=== PATIENT | female | born 1965 | race Caucasian/White ===

== ENCOUNTER 2017-11-25 10:35 | Outpatient (CLI) | payer MEDICARE, MEDICAID | END 2017-11-25 10:36 | disposition home or self-care (01) | LOC: BICRAD 10:35 | PROVIDERS: ATTEND Internal Medicine | DX: S69.92XA Unspecified injury of left wrist, hand and finger(s), initial encounter (principal) ==

== ENCOUNTER 2018-03-20 11:20 | Outpatient (CLI) | payer MEDICARE, MEDICAID | END 2018-03-20 11:21 | disposition home or self-care (01) | LOC: BICRAD 11:20 | PROVIDERS: ATTEND Internal Medicine | DX: J44.9 Chronic obstructive pulmonary disease, unspecified (principal) | CPT/HCPCS: 71046 ==

== ENCOUNTER 2018-09-12 17:13 | Inpatient (IN) | payer MEDICARE, MEDICAID ==
[2018-09-12] MEDS ORDERED: Succinylcholine Chloride 20 MG/ML 10 ml SYRINGE FS ONE (17:19)
[2018-09-12] MEDS ORDERED: Vecuronium 10 MG VIAL ONE (17:27)
[2018-09-12] MEDS ORDERED: Propofol 1,000 MG/100 ML VIAL IV ONE ×2 (17:30→21:11)
[2018-09-12] MEDS ORDERED: fentaNYL Citrate/PF 2,000 MCG in Sodium Chloride 0.9% 60 ML IV SCH (17:36)
[2018-09-12 18:03] LABS: #Eosinphils 0.1 thou/uL (0.0-0.7); #Lymphocytes 2.6 thou/uL (1.20-3.40); #Monocytes 0.6 thou/uL (0.11-0.59); #Neutrophils 5.7 thou/uL (1.40-6.50); %Basophils 0.5 % (0.0-1.0); %Eosinophils 1.3 % (0.0-10.0); %Lymphocytes 29.1 % (21.0-51.0); %Monocytes 6.7 % (0.0-10.0); %Neutrophils 62.4 % (42.0-75.0); Hemoglobin 16.8 g/dL (12.0-16.0); Mean Corpuscular HGB CONC 33.6 g/dL (32.0-36.0); Mean Corpuscular Hemoglobin 30.5 pg (27.0-31.0); Mean Corpuscular Volume 90.9 fL (78.0-98.0); Mean Platelet Volume 7.2 fL (7.4-10.4); Platelet Count 307 thou/uL (130-400); RBC Distribution Width 12.4 % (11.5-14.5); White Blood Cell (WBC) Count 9.1 thou/uL (4.8-10.8)
[2018-09-12 18:05] LABS: BHCG - Serum Negative (NEGATIVE); Pregs Control Background? CLEAR/WHITE (CLR/WHITE); Pregs Control Bar Appear? YES (CONTROL BAR)
[2018-09-12 18:12] LABS: ALT (SGPT) 13 U/L (8-55); AST (SGOT) 19 U/L (5-34); Albumin 4.5 g/dL (3.5-5.0); Alkaline Phosphatase 101 U/L (40-150); Anion Gap 17 mmol/L (10-20); BUN (Urea Nitrogen) 6 mg/dL (9.8-20.1); Bilirubin, Total 0.3 mg/dL (0.2-1.2); Calc. Creatinine Clearance 0 mL/min (70-130); Carbon Dioxide 19 mmol/L (22-29); Chloride 107 mmol/L (98-107); Estimated GFR-MDRD 78; Globulin 3.9 g/dL (2.4-3.5); Glucose 86 mg/dL (70-105); Potassium 3.8 mmol/L (3.5-5.1); Protein, Total 8.4 g/dL (6.0-8.3); Sodium 139 mmol/L (136-145)
[2018-09-12 18:15] LABS: Bilirubin Negative (Negative); Blood, Urine Negative (Negative); Clarity CLEAR (Clear); Glucose, Urine (Dipstick) Negative (Negative); Leukocyte Negative (Negative); Nitrite Negative (Negative); Protein, Urine (Dipstick) Negative (Neg-Trace); Specific Gravity, Urine 1.004 (1.002-1.036); Urobilinogen 0.2 mg/dL (0.2-1.0); pH, Urine 5.5 (5.0-9.0)
[2018-09-12 18:24] LABS: Actual Bicarbonate (HCO3a) 21.5 mEq/L (22-28); Analyzer IN Cardio ER; Base Excess (BEa) -6.1 mEq/L (-2.0 to +3.0); CO2 Tension 50.8 mmHg (35.0-45.0); Calcium, Ionized 1.09 mmol/L (1.12-1.30); Carboxyhemoglobin (COHb) 7.7 gm% (0.0-3.0); Hemoglobin (Hb) 13.7 g/dL (12.0-16.0); O2 Tension (PaO2) 107.1 mmHg (80.0-100.0); Potassium - ABG Lab 3.54 mmol/L (3.70-5.30)
[2018-09-12 18:25] LABS: Troponin I Less than 0.010 ng/mL (< 0.028)
[2018-09-12 18:25] LABS: Amphetamine Not Detected (NotDetected); Barbiturates Screen Not Detected (NotDetected); Benzodiazepine Screen Not Detected (NotDetected); Cocaine Metabolite Screen Detected (NotDetected); Medtox Control Line Valid? VALID (VALID); Medtox Reader # READER 1; Methadone Not Detected (NotDetected); Methamphetamine Not Detected (NotDetected); Opiate Screen Not Detected (NotDetected); Oxycodone Screen Not Detected (NotDetected); Phencyclidine (PCP) Not Detected (NotDetected); THC/Cannabinoid Screen Not Detected (NotDetected); Tricyclic Screen Not Detected (NotDetected)
[2018-09-12 18:28] LABS: Acetaminophen Less than 6.0 mcg/mL (10.0-30.0); Alcohol 162 mg/dL (Less than 10); Salicylate Less than 8.0 mg/dL (15.0-30.0)
[2018-09-12 18:29] LABS: pH, Arterial 7.24 (7.35-7.45)
[2018-09-12 18:30] LABS: Puncture Site LBA
--- NOTE | 2018-09-12 18:57 | RAD ---
PORTABLE SUPINE FRONTAL CHEST RADIOGRAPH 09/12/18 COMPARISON: 07/08/05. HISTORY: Intubated patient with altered mental status. FINDINGS: Supine imaging provided, limiting assessment for pneumothorax and pleural fluid. There is pulmonary v ascular congestion with perihilar increased linear density which may signify volume loss, edema or in filtrate. No lobar consolidation. Nasogastric tube extends into upper abdomen. Endotracheal tube term inates at the level of the clavicular heads. IMPRESSION: Lines and tubes as detailed above. Nonspecific increased linear density and bilateral perihilar regio n. POS: [facility]
[2018-09-12] MEDS ORDERED: Multivitamins, Adult 10 ML, Thiamine HCl 100 MG, Folic Acid 1 MG in Dextrose 5 %-0.45 %... IV ONE (19:15)
--- NOTE | 2018-09-12 20:10 | CT ---
CT OF THE HEAD WITHOUT CONTRAST: 09/12/18 COMPARISON: None. HISTORY: Altered mental status. TECHNIQUE: Serial axial CT imaging is obtained at 5 mm intervals from vertex through the skull base without cont rast. FINDINGS: Incompletely imaged nasogastric tube and endotracheal tube present. Imaged paranasal sinuses/mastoid air cells well aerated. No displaced calvarial fracture is noted. No intracranial hemorrhage, midline shift, mass effect or ventricular enlargement. IMPRESSION: No acute findings. POS: [facility]
[2018-09-12] MEDS ORDERED: SYSTANE 3.5 GM TUBE EA EYE PRN (20:23)
[2018-09-12] MEDS ORDERED: Lorazepam 2 MG/ML VIAL SLOW IVP PRN (21:11)
[2018-09-12] MEDS ORDERED: Propofol BOLUS 1,000 MG/100 ML VIAL IV PRN (21:11)
[2018-09-12] MEDS ORDERED: Morphine 2 MG/ML SYRINGE SLOW IVP PRN (21:11)
[2018-09-12] MEDS ORDERED: Fentanyl BOLUS 250 ML IVPB PRN (21:11)
[2018-09-12] MEDS ORDERED: Propofol 1,000 MG/100 ML VIAL IV PRN (21:11)
--- NOTE | 2018-09-12 21:22 | CT ---
CERVICAL SPINE CT WITHOUT CONTRAST: 09/12/18 COMPARISON: 07/08/05. HISTORY: Altered mental status, trauma. TECHNIQUE: Axial CT imaging at 2.5 mm intervals through the cervical spine without contrast. Coronal and sagitta l reformatted imaging obtained. FINDINGS: The craniocervical junction appears intact. There is moderate degenerative change involving the atlan toaxial interspace. There is prominent facet hypertrophy on the right at C2-3 and on the left at C3-4 . There is no significant anterolisthesis or retrolisthesis noted within the cervical spine. Minimal an terolisthesis at C3-4 noted in the 2 mm range. Incompletely imaged nasogastric tube and endometrial t ube present. No acute fracture or evidence of dislocation is seen. Imaged lung apices demonstrate nonspecific increased linear interstitial density. The occipital condyles, dens, and C1-2 articulation appear within normal limits. The thyroid gland ap pears heterogeneous, enlarged and appears to contain numerous nodules. Nonemergent followup thyroid u ltrasound suggested. IMPRESSION: Nonspecific linear interstitial density within the imaged lung apices. No acute fracture or evidence of dislocation of cervical spine. Abnormal appearance of the thyroid gland, incompletely assessed on this exam. POS: [facility]
[2018-09-12] MEDS: Famotidine 20 MG TAB PER TUBE SCH (21:28)
[2018-09-13] MEDS ORDERED: Ondansetron PF 4 MG/2 ML Vial IVP PRN (00:14)
[2018-09-13] MEDS ORDERED: Bisacodyl 5 MG TAB PO PRN (00:14)
[2018-09-13] MEDS ORDERED: Acetaminophen 650 MG Suppository PR PRN (00:14)
[2018-09-13] MEDS ORDERED: Ondansetron ODT 4 MG TAB PO PRN (00:14)
[2018-09-13] MEDS ORDERED: Bisacodyl 10 MG SUPP PR PRN (00:14)
[2018-09-13] MEDS ORDERED: CCU Electrolyte Replacement 1 EACH IVPB ONE (00:14)
[2018-09-13] MEDS ORDERED: Senokot S 8.6-50 MG TAB PO PRN (00:14)
[2018-09-13] MEDS ORDERED: Sodium Chloride 0.9% 1,000 ML IV SCH (00:15)
[2018-09-13] MEDS ORDERED: Ventilator Sedation Protocol 1 EACH FS SCH (00:15)
[2018-09-13] MEDS ORDERED: Magnesium 2 GM/NS 0.9% 100 ML 2 GM in Premix Bag 1 BAG IVPB PRN (00:44)
[2018-09-13] MEDS ORDERED: Potassium Phosphate 12 MMOL in Sodium Chloride 0.9% 250 ML 250 ML IV PRN (00:44)
[2018-09-13] MEDS ORDERED: Potassium Phosphate 9 MMOL in Sodium Chloride 0.9% 100 ML IVPB PRN (00:44)
[2018-09-13] MEDS ORDERED: Potassium Phosphate 15 MMOL in Sodium Chloride 0.9% 250 ML 250 ML IV PRN (00:44)
[2018-09-13] MEDS ORDERED: Potassium Chloride 40 MEQ in Sodium Chloride 0.9% 250 ML 250 ML IVPB PRN (00:44)
[2018-09-13] MEDS ORDERED: CCU ELECTROLYTE REPLACEMENT PROTOCOL FS PRN (00:44)
[2018-09-13] MEDS ORDERED: Potassium Chloride 20 MEQ TAB PO PRN (00:44)
[2018-09-13] MEDS ORDERED: Potassium Chloride 40 MEQ in Premix Bag 1 BAG IVPB PRN (00:44)
[2018-09-13] MEDS ORDERED: Magnesium Oxide 400 MG TAB PO PRN ×2 (00:44)
[2018-09-13] MEDS ORDERED: Propofol BOLUS 1,000 MG/100 ML VIAL IV PRN (00:46)
[2018-09-13] MEDS ORDERED: Fentanyl BOLUS 250 ML IVPB PRN (00:46)
[2018-09-13] MEDS ORDERED: fentaNYL Citrate/PF 2,000 MCG in Sodium Chloride 0.9% 60 ML IV SCH (00:46)
[2018-09-13] MEDS ORDERED: Morphine 2 MG/ML SYRINGE SLOW IVP PRN (00:46)
[2018-09-13] MEDS ORDERED: DISCONTINUE PREVIOUS NARCOTIC PAIN MEDICATIONS AND BENZODIAZEPINES FS SCH (00:46)
[2018-09-13] MEDS: Sodium Chloride 0.9% 1,000 ML IV SCH ×3 (01:07→19:44)
[2018-09-13] MEDS: Propofol 1,000 MG/100 ML VIAL IV PRN ×5 (01:07→19:45)
[2018-09-13] MEDS: Lorazepam 2 MG/ML VIAL SLOW IVP PRN ×3 (03:40→09:28)
--- NOTE | 2018-09-13 04:45 | CON ---
DATE OF CONSULTATION: 09/12/2018 SERVICE: Pulmonary Medicine. REASON FOR CONSULT: Respiratory failure. HISTORY OF PRESENT ILLNESS: The patient is a 52-year-old white female with past medical history significant for polysubstance drug abuse. She uses alcohol and cocaine. Apparently, she was in an agitated state in the emergency department. She was given some sedating medications. Ultimately, she really was not able to protect her airway and was subsequently intubated. She was placed on mechanical ventilation. She cannot provide any historical elements at this point in time. She required significant amount of sedation to stay comfortable on the ventilator. Finally, they got her to a point where she was comfortable, but unfortunately, her RASS scale was quite low. As such, I could not get any additional history out of her and everything is based on chart review. PAST MEDICAL HISTORY: 1. Type 2 diabetes mellitus. 2. Gastroesophageal reflux disease. 3. COPD. 4. Hypertension. 5. Bipolar disorder. 6. Schizophrenia. PAST SURGICAL HISTORY: 1. Cholecystectomy, laparoscopic. 2. Herniorrhaphy. 3. Laparotomy. 4. Tubal ligation. SOCIAL HISTORY: She drinks alcohol. She uses cocaine frequently. She smokes a pack on a daily basis at least up until 4 years ago and prior to that had a [id number] history. FAMILY HISTORY: Noncontributory. ALLERGIES: PENICILLIN. MEDICATIONS: List of her inpatient medications were reviewed. No specific updates were made at this time. REVIEW OF SYSTEMS: Cannot be obtained as the patient is currently intubated and sedated. PHYSICAL EXAMINATION: HEENT: Normocephalic, atraumatic. Sclerae white. Conjunctivae pink. Oral mucosa is moist without lesions. LUNGS: Excellent air entry. There is absolutely no prolonged expiratory phase present on mechanical ventilator waveforms or at bedside. There was no wheezing or rhonchi present. HEART: Normal rate, regular. ABDOMEN: Soft, nontender, nondistended. Bowel sounds are positive. MUSCULOSKELETAL: No cyanosis or clubbing. There is no pitting in the bilateral lower extremities. NEUROLOGIC: Grossly nonfocal. LABORATORY DATA: WBC 9.1, hemoglobin 16.8, and platelets 307,000. PH of 7.24, PCO2 of 51, and PO2 of 107. Basic metabolic profile and liver function studies are otherwise unremarkable. Urine is negative. Troponin is negative x1. Urinalysis is completely unremarkable. Urine drug screen is positive for alcohol and cocaine metabolites. Outside of this, it is not positive for anything. IMAGING DATA: 1. CT of the chest and neck demonstrates no obvious osseous abnormality or subluxation. There is no acute intracranial abnormality. 2. Chest x-ray demonstrates no acute cardiopulmonary abnormality. Endotracheal tube is actually secured in good position. There is an intracatheter that courses below the field of view. No acute cardiopulmonary abnormality is otherwise noted. ASSESSMENT: 1. Metabolic encephalopathy. 2. Polysubstance drug abuse secondary to alcohol and cocaine. 3. Extensive psychiatric history. DISCUSSION AND PLAN: The patient will be placed on propofol and fentanyl. In the morning, if she does not tolerate a sedation holiday without being smooth, we will consider Precedex. We will give her a laboratory holiday tomorrow morning. Hopefully, we would be able to extubate her smoothly in 12 to 24 hours. Pulmonary Critical Care will continue to follow while she remains in-house. She will certainly be tucked into the ICU this evening. Critical care time: 30 minutes. Job ID: [id number] DAVID
[2018-09-13 06:36] LABS: Anion Gap 11 mmol/L (10-20); BUN (Urea Nitrogen) 6 mg/dL (9.8-20.1); Calc. Creatinine Clearance 119 mL/min (70-130); Calcium 8.3 mg/dL (7.8-10.44); Carbon Dioxide 26 mmol/L (22-29); Chloride 110 mmol/L (98-107); Estimated GFR-MDRD 80; Glucose 86 mg/dL (70-105); Potassium 3.6 mmol/L (3.5-5.1); Sodium 143 mmol/L (136-145)
[2018-09-13] MEDS: Famotidine/PF 20 mg/2ml Vial SLOW IVP SCH ×2 (09:28→19:44)
[2018-09-13] MEDS: Famotidine 20 MG TAB PER TUBE SCH ×2 (09:29→19:45)
--- NOTE | 2018-09-13 10:52 | PRG ---
DATE OF SERVICE: 09/13/2018 SERVICE: Pulmonary Medicine. INTERVAL HISTORY: The patient is doing fine from respiratory standpoint. She has a little bit of oxygen requirement that would not go away. She requires about 27 % to 31% of FiO2 to maintain saturations of 92%. Overnight, they withheld sedation. She started becoming very agitated and biting on the tube. She did not follow any commands, but was clearly moving with purposeful intent in bilateral upper and lower extremities. That being said, I could not get any interval history from the patient. Nursing reports no additional events. PHYSICAL EXAMINATION: VITAL SIGNS: Currently, afebrile with a T-max of 99.1, pulse 107, blood pressure 135/78, respirations 12, saturations 95% on room air. GENERAL: The patient is awake and alert, in no apparent distress. LUNGS: Excellent air entry. There is no prolonged expiratory phase. I do not appreciate any dependent crackles or wheezing. HEART: Normal rate and regular. ABDOMEN: Soft, nontender, and nondistended. Bowel sounds are positive. MUSCULOSKELETAL: No cyanosis or clubbing. There is no pitting in the bilateral lower extremities. NEUROLOGIC: Grossly nonfocal. LABORATORY DATA: Potassium 3.6. Otherwise, basic metabolic profile was completely unremarkable. TSH is 2.1. Urinalysis is unremarkable. Urine drug screen is positive for cocaine and alcohol. ASSESSMENT: 1. Actue hypoxic respiratory failure. 2. Metabolic encephalopathy. 3. Substance abuse secondary to alcohol and cocaine. 4. Extensive psychiatric history. DISCUSSION AND PLAN: The patient is doing fine from respiratory standpoint. We will put her on Precedex and see if we can liberate her from the propofol and fentanyl. If we are successful in keeping her calm on the Precedex, we will consider extubation after a spontaneous breathing trial. She will need to remain in the ICU until she is cool, calm and collected off of all sedating medications. Laboratory holiday will be provided tomorrow morning. We will provide her with a dose of potassium. CRITICAL CARE TIME: 30 minutes. Job ID: [id number] MTDD
--- NOTE | 2018-09-13 12:41 | PDOC.PN ---
- Subjective Encounter Start Date: 09/13/18 Encounter Start Time: 12:00 Subjective: on vent, sedated -: is seen moving lower extremities - Objective Resuscitation Status - Order Detail: 09/13/18 00:14 Resuscitation Status Routine Resuscitation Status: FULL: Full Resuscitation MAR Reviewed: Yes Vital Signs & Weight: Vital Signs (12 hours) Temp Pulse Resp BP Pulse Ox 09/13/18 12:00 100.1 F H 14 09/13/18 10:22 99 112/63 09/13/18 10:00 13 09/13/18 08:00 99.1 F 14 95 09/13/18 07:41 114 H 148/95 H 09/13/18 06:00 13 09/13/18 04:00 13 09/13/18 03:00 98.0 F 09/13/18 02:00 13 09/13/18 01:26 100 Weight Admit Weight 192 lb 3.889 oz Weight 190 lb 7.67 oz Most Recent Monitor Data Heart Rate from ECG 92 NIBP 87/57 NIBP BP-Mean 67 Respiration from ECG 19 SpO2 96 I&O: 09/12/18 09/13/18 09/14/18 06:59 06:59 06:59 Intake Total 1167.2 6 Output Total 1185 310 Balance -17.8 -304 Result Diagrams: 09/12/18 17:48 09/13/18 06:14 Phys Exam - Physical Examination HEENT: PERRLA, sclera anicteric Neck: no JVD, supple Respiratory: no wheezing, no rales Cardiovascular: RRR, no significant murmur Gastrointestinal: soft, non-tender, no distention, positive bowel sounds Musculoskeletal: no edema, pulses present Neurological: non-focal, moves all 4 limbs Dx/Plan (1) Acute respiratory failure Code(s): J96.00 - ACUTE RESPIRATORY FAILURE, UNSP W HYPOXIA OR HYPERCAPNIA Status: Acute Qualifiers: Respiratory failure complication: hypoxia Qualified Code(s): J96.01 - Acute respiratory failure with hypoxia (2) Substance abuse Code(s): F19.10 - OTHER PSYCHOACTIVE SUBSTANCE ABUSE, UNCOMPLICATED Status: Acute Comment: cocaine (3) Alcohol abuse Code(s): F10.10 - ALCOHOL ABUSE, UNCOMPLICATED Status: Acute (4) Bipolar disorder Code(s): F31.9 - BIPOLAR DISORDER, UNSPECIFIED Status: Chronic Qualifiers: Active/Remission status: remission status unspecified Qualified Code(s): F31.9 - Bipolar disorder, unspecified (5) HTN (hypertension) Code(s): I10 - ESSENTIAL (PRIMARY) HYPERTENSION Status: Chronic Qualifiers: Hypertension type: essential hypertension Qualified Code(s): I10 - Essential (primary) hypertension - Plan weaning per pulm advice -: gentle iv hydration -: will be switched over to precedex for sedation and nebs -: will need [facility] eval for rehab resources/placement once she gets stable * . Review of Systems - Medications/Allergies Allergies/Adverse Reactions: Allergies Allergy/AdvReac Type Severity Reaction Status Date / Time Penicillins Allergy Unknown Verified 09/13/18 11:35 Sulfa (Sulfonamide Allergy Verified 09/12/18 21:15 Antibiotics) Medications: Current Medications Acetaminophen (Tylenol) 650 mg SD Q4H PRN PRN Reason: Headache/Fever/Mild Pain (1-3) Acetaminophen (Tylenol) 650 mg PO Q4H PRN PRN Reason: Headache/Fever/Mild Pain (1-3) Albuterol/Ipratropium (Duoneb) 3 ml NEB Q6H PRN PRN Reason: SOB &/or Wheezing Bisacodyl (Dulcolax) 10 mg PO DAILYPRN PRN PRN Reason: Constipation Bisacodyl (Dulcolax) 10 mg SD DAILYPRN PRN PRN Reason: Constipation Famotidine (Pepcid) 20 mg PER TUBE BID [facility] Last Admin: 09/13/18 09:29 Dose: Not Given Famotidine (Pepcid) 20 mg SLOW IVP Q12HR [facility] Last Admin: 09/13/18 09:28 Dose: 20 mg Multivitamins 10 ml/ Folic Acid 1 mg/ Thiamine HCl 100 mg / Dextrose/Sodium Chloride 1,011.2 mls @ 100 mls/hr IV 2100 BEN Sodium Chloride (Normal Saline 0.9%) 1,000 mls @ 100 mls/hr IV .Q10H [facility] Last Admin: 09/13/18 01:07 Dose: 1,000 mls Potassium Chloride 40 meq/ (Sodium Chloride) 270 mls @ 135 mls/hr IVPB ASDIR PRN PRN Reason: FOR SERUM K+ 2.5 - 3.5 Potassium Chloride 40 meq/ (Device) 100 mls @ 50 mls/hr IVPB ASDIR PRN PRN Reason: FOR SERUM K+ 2.5 - 3.5 Magnesium Sulfate 1 gm/ Sodium (Chloride) 102 mls @ 102 mls/hr IV PRN PRN PRN Reason: MAG LEVEL 1.4 - 2.0 Magnesium Sulfate 2 gm/ Device 100 mls @ 100 mls/hr IVPB ASDIR PRN PRN Reason: MAGNESIUM < 1.4 Potassium Phosphate 9 mmol/ (Sodium Chloride) 103 mls @ 25.75 mls/hr IVPB ASDIR PRN PRN Reason: Phosphate 1.0-1.8 Potassium Phosphate 12 mmol/ (Sodium Chloride) 254 mls @ 63.5 mls/hr IV ASDIR PRN PRN Reason: Serum phosphate 0.5-0.9 Potassium Phosphate 15 mmol/ (Sodium Chloride) 255 mls @ 63.75 mls/hr IV ASDIR PRN PRN Reason: Serum Phos < 0.5 Fentanyl Citrate 2,000 mcg/ (Sodium Chloride) 100 mls @ 0 mls/hr IV INF BEN; Protocol Stop: 10/13/18 00:46 Fentanyl Citrate (Fentanyl Bolus) 250 mls @ 0 mls/hr IVPB PRN PRN PRN Reason: Breakthrough pain/agitation Stop: 10/13/18 00:46 Dexmedetomidine HCl 200 mcg/ (Sodium Chloride) 50 mls @ 0 mls/hr IVPB INF BEN; Protocol Last Admin: 09/13/18 09:27 Dose: 50 mls Lorazepam (Ativan) 2 mg SLOW IVP Q1H PRN PRN Reason: Breakthrough agitation Stop: 10/13/18 00:46 Last Admin: 09/13/18 09:28 Dose: 2 mg Magnesium Oxide (Magnesium Oxide) 400 mg PO BIDPRN PRN PRN Reason: FOR SERUM MAG 1.4 - 2.0 Magnesium Oxide (Magnesium Oxide) 800 mg PO PRN PRN PRN Reason: FOR SERUM MAG < 1.4 Mineral Oil/White Petrolatum (Lacri-Lube Ointment) 0 gm EA EYE PRN PRN PRN Reason: Dry Eyes Miscellaneous Medication (Phos-Nak) 1 pkt PO TIDPRN PRN PRN Reason: FOR PHOS LEVEL 1.0 - 1.8 Miscellaneous Medication (Phos-Nak) 2 pkt PO TIDPRN PRN PRN Reason: FOR PHOS LEVEL 0.5 - 1.0 Morphine Sulfate (Morphine) 2 mg SLOW IVP Q1H PRN PRN Reason: BREAKTHROUGH PAIN/Agitation Stop: 10/13/18 00:46 Ccu Electrolyte (Replacement Protocol) 0 each FS PRN PRN PRN Reason: FOR ELECTROLYTE REPLACEMENT Discontinue Previous Narcotic Pain Medications And Benzodiazepines 1 each FS .ONE BEN Stop: 10/13/18 00:46 Ondansetron HCl (Zofran Odt) 4 mg PO Q6H PRN PRN Reason: Nausea/Vomiting Ondansetron HCl (Zofran) 4 mg IVP Q6H PRN PRN Reason: Nausea/Vomiting Potassium Chloride (K-Dur) 40 meq PO ASDIR PRN PRN Reason: FOR SERUM K+ 2.5 - 3.5 Potassium Chloride (Klor-Con) 40 meq PER TUBE ASDIR PRN PRN Reason: FOR SERUM K+ 2.5-3.5 Potassium Chloride (Klor-Con) 40 meq PO NOW BEN Stop: 09/13/18 14:00 Propofol (Diprivan) 1,000 mg IV INF PRN; Protocol PRN Reason: TO ACHIEVE GOAL RASS Stop: 10/13/18 00:46 Last Admin: 09/13/18 09:28 Dose: 1,000 mg Propofol (Diprivan Bolus) 20 mg IV Q5MIN PRN PRN Reason: BREAKTHROUGH AGITATION Stop: 10/13/18 00:46 Senna/Docusate Sodium (Senokot S) 2 tab PO BID PRN PRN Reason: Constipation Sodium Chloride (Flush - Normal Saline) 10 ml IVF Q12H PRN PRN Reason: Saline Flush Sodium Chloride (Flush - Normal Saline) 10 ml IVF PRN PRN PRN Reason: Saline Flush
[2018-09-13] MEDS: Multivitamins, Adult 10 ML, Folic Acid 1 MG, Thiamine HCl 100 MG in Dextrose 5 %-0.45 %... IV SCH (20:27)
[2018-09-14] MEDS: Propofol 1,000 MG/100 ML VIAL IV PRN (04:48)
[2018-09-14] MEDS: Sodium Chloride 0.9% 1,000 ML IV SCH ×2 (05:59→17:31)
[2018-09-14] MEDS: Famotidine/PF 20 mg/2ml Vial SLOW IVP SCH ×2 (09:22→22:00)
[2018-09-14] MEDS: Famotidine 20 MG TAB PER TUBE SCH ×2 (09:22→19:22)
--- NOTE | 2018-09-14 11:52 | PDOC.PN ---
- Subjective Encounter Start Date: 09/14/18 Encounter Start Time: 10:45 Subjective: on vent, awakens easily -: is seen moving all extremities - Objective Resuscitation Status - Order Detail: 09/13/18 00:14 Resuscitation Status Routine Resuscitation Status: FULL: Full Resuscitation MAR Reviewed: Yes Vital Signs & Weight: Vital Signs (12 hours) Temp Pulse Resp BP Pulse Ox 09/14/18 11:15 65 128/86 09/14/18 10:00 21 H 09/14/18 09:12 61 09/14/18 08:00 16 96 09/14/18 07:00 99.1 F 09/14/18 06:51 61 105/72 98 09/14/18 06:00 15 09/14/18 04:18 59 L 95/65 09/14/18 04:00 22 H 09/14/18 03:00 98.7 F 09/14/18 02:00 19 09/14/18 00:51 63 96/67 09/14/18 00:00 18 Weight Admit Weight 192 lb 3.889 oz Weight 193 lb 5.526 oz Most Recent Monitor Data Heart Rate from ECG 62 NIBP 128/86 NIBP BP-Mean 100 Respiration from ECG 19 SpO2 97 I&O: 09/13/18 09/14/18 09/15/18 06:59 06:59 06:59 Intake Total 1167.2 3073.5 Output Total 1185 1425 280 Balance -17.8 1648.5 -280 Result Diagrams: 09/12/18 17:48 09/13/18 06:14 Phys Exam - Physical Examination HEENT: PERRLA, sclera anicteric Neck: no JVD, supple Respiratory: no wheezing, no rales Cardiovascular: RRR, no significant murmur Gastrointestinal: soft, no distention, positive bowel sounds Musculoskeletal: no edema, pulses present Neurological: non-focal, moves all 4 limbs Dx/Plan (1) Acute respiratory failure Code(s): J96.00 - ACUTE RESPIRATORY FAILURE, UNSP W HYPOXIA OR HYPERCAPNIA Status: Acute Qualifiers: Respiratory failure complication: hypoxia Qualified Code(s): J96.01 - Acute respiratory failure with hypoxia (2) Substance abuse Code(s): F19.10 - OTHER PSYCHOACTIVE SUBSTANCE ABUSE, UNCOMPLICATED Status: Acute Comment: cocaine (3) Alcohol abuse Code(s): F10.10 - ALCOHOL ABUSE, UNCOMPLICATED Status: Acute (4) Bipolar disorder Code(s): F31.9 - BIPOLAR DISORDER, UNSPECIFIED Status: Chronic Qualifiers: Active/Remission status: remission status unspecified Qualified Code(s): F31.9 - Bipolar disorder, unspecified (5) HTN (hypertension) Code(s): I10 - ESSENTIAL (PRIMARY) HYPERTENSION Status: Chronic Qualifiers: Hypertension type: essential hypertension Qualified Code(s): I10 - Essential (primary) hypertension - Plan weaning per pulm adv, likely will be extubated today -: is on precedex and propofol for sedation -: gentle iv hydration, banana bag, nebs -: will f/u -: will need [facility] consultation when stable * . Review of Systems - Medications/Allergies Allergies/Adverse Reactions: Allergies Allergy/AdvReac Type Severity Reaction Status Date / Time Penicillins Allergy Unknown Verified 09/13/18 11:35 Sulfa (Sulfonamide Allergy Verified 09/12/18 21:15 Antibiotics) Medications: Current Medications Acetaminophen (Tylenol) 650 mg MA Q4H PRN PRN Reason: Headache/Fever/Mild Pain (1-3) Acetaminophen (Tylenol) 650 mg PO Q4H PRN PRN Reason: Headache/Fever/Mild Pain (1-3) Albuterol/Ipratropium (Duoneb) 3 ml NEB Q6H PRN PRN Reason: SOB &/or Wheezing Bisacodyl (Dulcolax) 10 mg PO DAILYPRN PRN PRN Reason: Constipation Bisacodyl (Dulcolax) 10 mg MA DAILYPRN PRN PRN Reason: Constipation Famotidine (Pepcid) 20 mg PER TUBE BID [facility] Last Admin: 09/14/18 09:22 Dose: Not Given Famotidine (Pepcid) 20 mg SLOW IVP Q12HR [facility] Last Admin: 09/14/18 09:22 Dose: 20 mg Multivitamins 10 ml/ Folic Acid 1 mg/ Thiamine HCl 100 mg / Dextrose/Sodium Chloride 1,011.2 mls @ 100 mls/hr IV 2100 BEN Last Admin: 09/13/18 20:27 Dose: 1,011.2 mls Sodium Chloride (Normal Saline 0.9%) 1,000 mls @ 100 mls/hr IV .Q10H [facility] Last Admin: 09/14/18 05:59 Dose: 1,000 mls Potassium Chloride 40 meq/ (Sodium Chloride) 270 mls @ 135 mls/hr IVPB ASDIR PRN PRN Reason: FOR SERUM K+ 2.5 - 3.5 Potassium Chloride 40 meq/ (Device) 100 mls @ 50 mls/hr IVPB ASDIR PRN PRN Reason: FOR SERUM K+ 2.5 - 3.5 Magnesium Sulfate 1 gm/ Sodium (Chloride) 102 mls @ 102 mls/hr IV PRN PRN PRN Reason: MAG LEVEL 1.4 - 2.0 Magnesium Sulfate 2 gm/ Device 100 mls @ 100 mls/hr IVPB ASDIR PRN PRN Reason: MAGNESIUM < 1.4 Potassium Phosphate 9 mmol/ (Sodium Chloride) 103 mls @ 25.75 mls/hr IVPB ASDIR PRN PRN Reason: Phosphate 1.0-1.8 Potassium Phosphate 12 mmol/ (Sodium Chloride) 254 mls @ 63.5 mls/hr IV ASDIR PRN PRN Reason: Serum phosphate 0.5-0.9 Potassium Phosphate 15 mmol/ (Sodium Chloride) 255 mls @ 63.75 mls/hr IV ASDIR PRN PRN Reason: Serum Phos < 0.5 Fentanyl Citrate 2,000 mcg/ (Sodium Chloride) 100 mls @ 0 mls/hr IV INF [facility]; Protocol Stop: 10/13/18 00:46 Fentanyl Citrate (Fentanyl Bolus) 250 mls @ 0 mls/hr IVPB PRN PRN PRN Reason: Breakthrough pain/agitation Stop: 10/13/18 00:46 Dexmedetomidine HCl 200 mcg/ (Sodium Chloride) 50 mls @ 0 mls/hr IVPB INF [facility]; Protocol Last Admin: 09/14/18 09:23 Dose: 50 mls Lorazepam (Ativan) 2 mg SLOW IVP Q1H PRN PRN Reason: Breakthrough agitation Stop: 10/13/18 00:46 Last Admin: 09/13/18 09:28 Dose: 2 mg Magnesium Oxide (Magnesium Oxide) 400 mg PO BIDPRN PRN PRN Reason: FOR SERUM MAG 1.4 - 2.0 Magnesium Oxide (Magnesium Oxide) 800 mg PO PRN PRN PRN Reason: FOR SERUM MAG < 1.4 Mineral Oil/White Petrolatum (Lacri-Lube Ointment) 0 gm EA EYE PRN PRN PRN Reason: Dry Eyes Miscellaneous Medication (Phos-Nak) 1 pkt PO TIDPRN PRN PRN Reason: FOR PHOS LEVEL 1.0 - 1.8 Miscellaneous Medication (Phos-Nak) 2 pkt PO TIDPRN PRN PRN Reason: FOR PHOS LEVEL 0.5 - 1.0 Morphine Sulfate (Morphine) 2 mg SLOW IVP Q1H PRN PRN Reason: BREAKTHROUGH PAIN/Agitation Stop: 10/13/18 00:46 Ccu Electrolyte (Replacement Protocol) 0 each FS PRN PRN PRN Reason: FOR ELECTROLYTE REPLACEMENT Discontinue Previous Narcotic Pain Medications And Benzodiazepines 1 each FS .ONE BEN Stop: 10/13/18 00:46 Ondansetron HCl (Zofran Odt) 4 mg PO Q6H PRN PRN Reason: Nausea/Vomiting Ondansetron HCl (Zofran) 4 mg IVP Q6H PRN PRN Reason: Nausea/Vomiting Potassium Chloride (K-Dur) 40 meq PO ASDIR PRN PRN Reason: FOR SERUM K+ 2.5 - 3.5 Potassium Chloride (Klor-Con) 40 meq PER TUBE ASDIR PRN PRN Reason: FOR SERUM K+ 2.5-3.5 Propofol (Diprivan) 1,000 mg IV INF PRN; Protocol PRN Reason: TO ACHIEVE GOAL RASS Stop: 10/13/18 00:46 Last Admin: 09/14/18 04:48 Dose: 1,000 mg Propofol (Diprivan Bolus) 20 mg IV Q5MIN PRN PRN Reason: BREAKTHROUGH AGITATION Stop: 10/13/18 00:46 Senna/Docusate Sodium (Senokot S) 2 tab PO BID PRN PRN Reason: Constipation Sodium Chloride (Flush - Normal Saline) 10 ml IVF Q12H PRN PRN Reason: Saline Flush Sodium Chloride (Flush - Normal Saline) 10 ml IVF PRN PRN PRN Reason: Saline Flush
[2018-09-14] MEDS: Multivitamins, Adult 10 ML, Folic Acid 1 MG, Thiamine HCl 100 MG in Dextrose 5 %-0.45 %... IV SCH (22:00)
[2018-09-14] MEDS: Nicotine 14 MG PATCH TOP SCH (23:11)
[2018-09-15] MEDS: Acetaminophen 325 MG TAB PO PRN ×2 (02:17→15:34)
[2018-09-15] MEDS: Sodium Chloride 0.9% 1,000 ML IV SCH (05:32)
--- NOTE | 2018-09-15 07:58 | HP ---
CHIEF COMPLAINT: Alteration of awareness. HISTORY OF PRESENT ILLNESS: This is a 52-year-old female with past medical history significant for type 2 diabetes mellitus, GERD, COPD, hypertension, bipolar disorder, and schizophrenia, presented with respiratory failure. The patient came in the hospital. The patient was very belligerent. The patient was found stumbling around in a drugstore, and the patient was told to leave. The patient was found out passed out, and EMS was called. Per EMS, the patient was combative en route to the hospital. The patient was put on self-restraint. The patient was given ketamine, Zofran, and thiamine. The patient went into respiratory failure and was not able to maintain the airway, so the patient was intubated. REVIEW OF SYSTEMS: Unable to be obtained because the patient was intubated. PAST SURGICAL HISTORY: Significant for cholecystectomy, herniorrhaphy, laparotomy, and tubal ligation. SOCIAL HISTORY: The patient drinks a lot of alcohol, using cocaine frequently. The patient smokes a pack of cigarette daily. At least, the patient has been smoking for years, heavy smoker and is smoking for almost 30 packs per year. FAMILY HISTORY: Noncontributory to this visit. MEDICATION LIST: Unknown. ALLERGIES: PENICILLINS AND SULFA DRUGS. PHYSICAL EXAMINATION: VITAL SIGNS: Blood pressure 109/68, pulse of 82, respiratory rate of 19, temperature of 97, and O2 sats of 98%. GENERAL: The patient is intubated. HEENT: Normocephalic and atraumatic. Pupils are equally round and reactive to light. The patient is intubated, has endotracheal tube in place. LUNGS: The patient is currently intubated. Anterior lung hall, can hear ventilated lung. No wheezing or rhonchi. CARDIAC: Positive S1 and S2. Regular rate and rhythm. ABDOMEN: Soft, nontender, and nondistended. Positive bowel sounds in all quadrants. MUSCLES: No cyanosis, no clubbing, no pitting edema noted. NEURO: No focal neurologic deficits. LABORATORY DATA: WBC is 9.1, hemoglobin is 16.8, and platelets . PH is 7.24, pCO2 is 51, and PO2 is 107. BNP is unremarkable. Urine test is negative. Troponin x1 is negative. IMAGING DATA: CT of the chest and neck demonstrates no obvious osseous abnormality or subluxation. There is no acute intracranial abnormality. Chest x-ray demonstrates no acute cardiopulmonary abnormality. Endotracheal tube is secured in place. ASSESSMENT AND PLAN: This is a 52-year-old female with history of drug abuse, being admitted to the ICU with; 1. Acute respiratory failure, likely due to metabolic encephalopathy. At this point, the patient has been intubated and the patient is being managed in the ICU. We will continue current management. 2. Polysubstance drug abuse, cocaine and ethanol. We will continue the patient on IV hydration, Ativan p.r.n., and we will continue to monitor the patient closely. 3. Deep venous thrombosis/gastrointestinal prophylaxis. Job ID: [id number]
[2018-09-15] MEDS: Famotidine/PF 20 mg/2ml Vial SLOW IVP SCH (08:40)
[2018-09-15] MEDS: Famotidine 20 MG TAB PER TUBE SCH (08:55)
--- NOTE | 2018-09-15 10:11 | PRG ---
DATE OF SERVICE: 09/14/2018 SERVICE: Pulmonary Medicine. INTERVAL HISTORY: The patient is doing really well from a respiratory standpoint. Today, she is awake, cool, calm and collected on a little bit of Precedex in addition to some propofol. She does not have any specific complaints. She denies any current chest pain. Nursing reports overnight events. She remains on mechanical ventilation, but otherwise had an eventful evening. PHYSICAL EXAMINATION: VITAL SIGNS: Afebrile. Pulse 62, blood pressure 128/88, respirations 19, saturation 98% on 31% FiO2 and PEEP of 5. GENERAL: The patient is awake and alert. She is on mechanical ventilation with some sedation. She will fall back to sleep in less than 10 seconds without stimulation. HEENT: Normocephalic, atraumatic. Sclerae are white. Conjunctivae are pink. Oral mucosa is moist and without lesions. LUNGS: Decent air entry. There is no prolonged expiratory phase present. Dependent crackles are noted. HEART: Normal rate. Regular. ABDOMEN: Soft, nontender, and nondistended. Bowel sounds are positive. MUSCULOSKELETAL: No cyanosis or clubbing. There are no pitting in bilateral lower extremities. NEUROLOGIC: Nonfocal. ASSESSMENT: 1. Acute hypoxic respiratory failure. 2. Metabolic encephalopathy. 3. Substance abuse secondary to alcohol and cocaine. 4. Extensive psychiatric history. DISCUSSION AND PLAN: The patient is doing really quite well. Finally, her mentation is much improved. As such, we will put her on a spontaneous breathing trial. If she meets criteria, extubation will be considered. Pulmonary Critical Care will continue to follow along. CRITICAL CARE TIME: 30 minutes. Job ID: [id number] MTDD
[2018-09-15 11:43] VITALS: BMI 29.2
[2018-09-15] MEDS ORDERED: Lorazepam 2 MG/ML VIAL SLOW IVP PRN (12:42)
[2018-09-15] MEDS ORDERED: Enoxaparin Sodium 40 MG/0.4 ML SYRINGE SC SCH (12:45)
--- NOTE | 2018-09-15 12:46 | PDOC.PN ---
- Subjective Encounter Start Date: 09/15/18 Encounter Start Time: 11:30 Subjective: got extubated yest evening -: is more calm this morning -: was very aggressive yesterday per staff - Objective Resuscitation Status - Order Detail: 09/13/18 00:14 Resuscitation Status Routine Resuscitation Status: FULL: Full Resuscitation MAR Reviewed: Yes Vital Signs & Weight: Vital Signs (12 hours) Temp Pulse Ox 09/15/18 12:00 99.1 F 96 09/15/18 07:20 95 09/15/18 07:00 99.4 F 09/15/18 05:00 99.1 F 09/15/18 02:00 99 F Weight Admit Weight 192 lb 3.889 oz Weight 187 lb Most Recent Monitor Data Heart Rate from ECG 93 NIBP 141/87 NIBP BP-Mean 105 Respiration from ECG 31 SpO2 94 I&O: 09/14/18 09/15/18 09/16/18 06:59 06:59 06:59 Intake Total 3073.5 3610.7 1027 Output Total 1425 1535 1000 Balance 1648.5 2075.7 27 Result Diagrams: 09/12/18 17:48 09/13/18 06:14 Phys Exam - Physical Examination HEENT: PERRLA, sclera anicteric Neck: no JVD, supple Respiratory: no wheezing, no rales Cardiovascular: RRR, no significant murmur Gastrointestinal: soft, non-tender, positive bowel sounds Musculoskeletal: no edema, pulses present Neurological: non-focal, moves all 4 limbs Dx/Plan (1) Acute respiratory failure Code(s): J96.00 - ACUTE RESPIRATORY FAILURE, UNSP W HYPOXIA OR HYPERCAPNIA Status: Resolved Qualifiers: Respiratory failure complication: hypoxia Qualified Code(s): J96.01 - Acute respiratory failure with hypoxia (2) Substance abuse Code(s): F19.10 - OTHER PSYCHOACTIVE SUBSTANCE ABUSE, UNCOMPLICATED Status: Acute Comment: cocaine (3) Alcohol abuse Code(s): F10.10 - ALCOHOL ABUSE, UNCOMPLICATED Status: Chronic (4) Bipolar disorder Code(s): F31.9 - BIPOLAR DISORDER, UNSPECIFIED Status: Chronic Qualifiers: Active/Remission status: remission status unspecified Qualified Code(s): F31.9 - Bipolar disorder, unspecified (5) HTN (hypertension) Code(s): I10 - ESSENTIAL (PRIMARY) HYPERTENSION Status: Chronic Qualifiers: Hypertension type: essential hypertension Qualified Code(s): I10 - Essential (primary) hypertension - Plan PT to mobilize as tolerated, tx to med floor -: oral diet, is cleared medically for dc -: [facility] has evaluated patient and wants to be hosp in psyc unit -: await inpt psyc bed -: d/w aunt and patient at bedside * . Review of Systems - Medications/Allergies Allergies/Adverse Reactions: Allergies Allergy/AdvReac Type Severity Reaction Status Date / Time Penicillins Allergy Unknown Verified 09/13/18 11:35 Sulfa (Sulfonamide Allergy Verified 09/12/18 21:15 Antibiotics) Medications: Current Medications Acetaminophen (Tylenol) 650 mg UT Q4H PRN PRN Reason: Headache/Fever/Mild Pain (1-3) Acetaminophen (Tylenol) 650 mg PO Q4H PRN PRN Reason: Headache/Fever/Mild Pain (1-3) Last Admin: 09/15/18 02:17 Dose: 650 mg Albuterol/Ipratropium (Duoneb) 3 ml NEB Q6H PRN PRN Reason: SOB &/or Wheezing Bisacodyl (Dulcolax) 10 mg PO DAILYPRN PRN PRN Reason: Constipation Bisacodyl (Dulcolax) 10 mg UT DAILYPRN PRN PRN Reason: Constipation Enoxaparin Sodium (Lovenox) 40 mg SC ONE BEN Enoxaparin Sodium (Lovenox) 40 mg SC 0900 BEN Lorazepam (Ativan) 2 mg SLOW IVP Q30MIN PRN PRN Reason: Anxiety/Agitation Nicotine (Nicoderm Patch) 14 mg TOP Q24HR BEN Last Admin: 09/14/18 23:11 Dose: 14 mg Ondansetron HCl (Zofran Odt) 4 mg PO Q6H PRN PRN Reason: Nausea/Vomiting Ondansetron HCl (Zofran) 4 mg IVP Q6H PRN PRN Reason: Nausea/Vomiting Senna/Docusate Sodium (Senokot S) 2 tab PO BID PRN PRN Reason: Constipation Sodium Chloride (Flush - Normal Saline) 10 ml IVF Q12H PRN PRN Reason: Saline Flush Sodium Chloride (Flush - Normal Saline) 10 ml IVF PRN PRN PRN Reason: Saline Flush
--- NOTE | 2018-09-15 13:51 | PRG ---
DATE OF SERVICE: 09/15/2018 SERVICE: Pulmonary Medicine. INTERVAL HISTORY: The patient is doing really well from respiratory standpoint. She had been weaned down to room air today. She did not have any overnight events. She has no specific complaints otherwise. She tolerated being extubated quite well yesterday. She is yet to get out of the bed and still has her Triana catheter in place. PHYSICAL EXAMINATION: VITAL SIGNS: Afebrile. Pulse 93, blood pressure 141/87, respirations 31, and saturations 94% on room air. GENERAL: The patient is awake and alert, in no apparent distress. LUNGS: Excellent air entry. There are no crackles or rhonchi appreciated. HEART: Normal rate and regular. ABDOMEN: Soft, nontender, and nondistended. Bowel sounds are positive. MUSCULOSKELETAL: No cyanosis or clubbing. There is no pitting in the bilateral lower extremities. NEUROLOGIC: Grossly nonfocal. ASSESSMENT: 1. Metabolic encephalopathy, resolved. 2. Acute hypoxic respiratory failure, resolved. 3. Substance abuse, secondary to alcohol and cocaine. 4. Extensive psychiatric history. DISCUSSION AND PLAN: The patient is stable for transition out of the ICU to the medical unit. Apparently, [facility] is being involved because of some other issues that have been ongoing. That being said, when the patient arrives on the floor, she has no further requirements for inpatient pulmonary critical care opinion, I will sign off. We will follow her alcohol symptomology score and if it becomes elevated, intermittent dosing of benzodiazepines can be considered. Job ID: [id number]
[2018-09-15] MEDS: Nicotine 14 MG PATCH TOP SCH (22:42)
[2018-09-16] MEDS: Acetaminophen 325 MG TAB PO PRN (01:13)
[2018-09-16] MEDS ORDERED: Enoxaparin Sodium 40 MG/0.4 ML SYRINGE SC SCH (09:00)
--- NOTE | 2018-09-16 13:38 | PDOC.PN ---
- Subjective Encounter Start Date: 09/16/18 Encounter Start Time: 07:00 Subjective: awake, responds well to verbal stimuli -: has sitter in room - Objective Resuscitation Status - Order Detail: 09/13/18 00:14 Resuscitation Status Routine Resuscitation Status: FULL: Full Resuscitation MAR Reviewed: Yes Vital Signs & Weight: Vital Signs (12 hours) Temp Pulse Resp BP BP Pulse Ox 09/16/18 13:31 97 09/16/18 13:04 113/81 09/16/18 13:03 98.3 F 74 20 113/81 97 09/16/18 08:35 126/79 95 09/16/18 07:56 98.2 F 77 16 126/79 95 09/16/18 04:21 98.3 F 85 18 120/76 120/76 93 L Weight Admit Weight 192 lb 3.889 oz Weight 189 lb 5 oz Most Recent Monitor Data Heart Rate from ECG 89 NIBP 135/88 NIBP BP-Mean 103 Respiration from ECG 26 SpO2 95 I&O: 09/15/18 09/16/18 09/17/18 06:59 06:59 06:59 Intake Total 3610.7 1887 Output Total 1535 2180 Balance 2075.7 -293 Result Diagrams: 09/12/18 17:48 09/13/18 06:14 Additional Labs: Accuchecks 09/16/18 13:15 POC Glucose 105 Phys Exam - Physical Examination HEENT: PERRLA, moist MMs Neck: no JVD, supple Respiratory: no wheezing, no rales Cardiovascular: RRR, no significant murmur Gastrointestinal: soft, non-tender, positive bowel sounds Musculoskeletal: no edema, pulses present Neurological: non-focal, moves all 4 limbs Psychiatric: normal affect, A&O x 3 Dx/Plan (1) Acute respiratory failure Code(s): J96.00 - ACUTE RESPIRATORY FAILURE, UNSP W HYPOXIA OR HYPERCAPNIA Status: Resolved Qualifiers: Respiratory failure complication: hypoxia Qualified Code(s): J96.01 - Acute respiratory failure with hypoxia (2) Substance abuse Code(s): F19.10 - OTHER PSYCHOACTIVE SUBSTANCE ABUSE, UNCOMPLICATED Status: Acute Comment: cocaine (3) Alcohol abuse Code(s): F10.10 - ALCOHOL ABUSE, UNCOMPLICATED Status: Chronic (4) Bipolar disorder Code(s): F31.9 - BIPOLAR DISORDER, UNSPECIFIED Status: Chronic Qualifiers: Active/Remission status: currently active Current bipolar episode type: manic Current episode severity: severe (5) HTN (hypertension) Code(s): I10 - ESSENTIAL (PRIMARY) HYPERTENSION Status: Chronic Qualifiers: Hypertension type: essential hypertension Qualified Code(s): I10 - Essential (primary) hypertension - Plan hemostable, is amb in room -: is on thioridazine at home dose per med records -: awaiting inpt psych bed, may dc anytime if accepted * . Review of Systems - Medications/Allergies Allergies/Adverse Reactions: Allergies Allergy/AdvReac Type Severity Reaction Status Date / Time Penicillins Allergy Unknown Verified 09/13/18 11:35 Sulfa (Sulfonamide Allergy Verified 09/12/18 21:15 Antibiotics) Medications: Current Medications Acetaminophen (Tylenol) 650 mg WI Q4H PRN PRN Reason: Headache/Fever/Mild Pain (1-3) Acetaminophen (Tylenol) 650 mg PO Q4H PRN PRN Reason: Headache/Fever/Mild Pain (1-3) Last Admin: 09/16/18 01:13 Dose: 650 mg Albuterol/Ipratropium (Duoneb) 3 ml NEB Q6H PRN PRN Reason: SOB &/or Wheezing Bisacodyl (Dulcolax) 10 mg PO DAILYPRN PRN PRN Reason: Constipation Bisacodyl (Dulcolax) 10 mg WI DAILYPRN PRN PRN Reason: Constipation Enoxaparin Sodium (Lovenox) 40 mg SC 0900 [facility] Last Admin: 09/16/18 08:40 Dose: Not Given Lorazepam (Ativan) 2 mg SLOW IVP Q30MIN PRN PRN Reason: Anxiety/Agitation Nicotine (Nicoderm Patch) 14 mg TOP Q24HR [facility] Last Admin: 09/15/18 22:42 Dose: 14 mg Ondansetron HCl (Zofran Odt) 4 mg PO Q6H PRN PRN Reason: Nausea/Vomiting Ondansetron HCl (Zofran) 4 mg IVP Q6H PRN PRN Reason: Nausea/Vomiting Senna/Docusate Sodium (Senokot S) 2 tab PO BID PRN PRN Reason: Constipation Sodium Chloride (Flush - Normal Saline) 10 ml IVF Q12H PRN PRN Reason: Saline Flush Sodium Chloride (Flush - Normal Saline) 10 ml IVF PRN PRN PRN Reason: Saline Flush
[2018-09-16] MEDS ORDERED: THIORIDAZINE 100 MG PO SCH (14:00)
--- NOTE | 2018-09-16 18:24 | EKG ---
Test Reason : AMS Blood Pressure : / mmHG Vent. Rate : 085 BPM Atrial Rate : 085 BPM P-R Int : 140 ms QRS Dur : 084 ms QT Int : 416 ms P-R-T Axes : 055 002 051 degrees QTc Int : 495 ms Normal sinus rhythm Possible Left atrial enlargement Prolonged QT Abnormal ECG Confirmed by ISIDRO GARDINER ([id number]), news editor GARTH AGUSTIN ([id number] on 09/16/2018 6:23:24 PM Referred By: Confirmed By:ISIDRO GARDINER
--- NOTE | 2018-09-16 20:05 | PDOC.EVN ---
Event Note - Event Note Event Note: Doc-Doc report done with Dr Mariscal [phone]
[2018-09-16 21:50] VITALS: BP 149/74; TEMP 98.1
[2018-09-16] MEDS: Nicotine 14 MG PATCH TOP SCH (23:52)
--- NOTE | 2018-09-18 07:52 | DIS ---
DATE OF ADMISSION: 09/12/2018 DATE OF DISCHARGE: 09/17/2018 DISCHARGE DISPOSITION: [place] inpatient psychiatric facility. PRIMARY DISCHARGE DIAGNOSES: Acute respiratory failure with hypoxia and intubated for airway with history of substance abuse and alcohol abuse, resolved, history of bipolar disorder with manic phase with severe nena at present, hypertension. PROCEDURES DONE DURING HOSPITALIZATION: The patient has had CT brain without contrast, which showed no acute findings. CT cervical spine done showed no acute fracture or evidence of dislocation of C-spine. Chest x-ray done showed no acute infiltrate. H and H 16 and 50, platelet count 307, white count of 9 on the day of admission. BUN and creatinine 6 and 0.7 on . TSH 2.1. Cardiac enzymes x1 was negative. Serum test was negative. UA showed no signs of infection. Urine drug screen was positive for cocaine metabolites. Plasma alcohol levels were 162 mg/dL. DISCHARGE MEDICATION: Thioridazine 100 mg p.o. three times daily. ALLERGIES: ALLERGIC TO PENICILLIN AND SULFA. BRIEF COURSE DURING HOSPITALIZATION: The patient initially was brought by EMS after they found her passed out near a drugstore. She was stumbling prior to that. She had to be intubated to maintain airway after she was given ketamine, Zofran and thiamine by EMS. Her urine drug screen was positive for cocaine and alcohol. The patient has known history of bipolar disorder and suspected schizoaffective disorder. She was initially admitted to ICU and has had successful extubation done. The patient has had [facility] consultation and per their advice, she is being discharged to inpatient psychiatric facility in [place] for further help and counseling for severe nena with bipolar disorder with psychosis. She also has substance abuse disorder as well. Please see a [id number] documentation for the day of discharge on [employer]. Job ID: [id number] MTDD
== END 2018-09-17 00:35 | disposition short-term general hospital (02) | DRG 208 ==
LOC: ERS 17:13 → CCU 19:00 → T4-A 09-15 19:38
PROVIDERS: ADMIT Internal Medicine; ATTEND Internal Medicine
PROC: 5A1945Z Respiratory Ventilation, 24-96 Consecutive Hours (ICD-10-PCS; principal; 2018-09-12)
DX: J96.01 Acute respiratory failure with hypoxia (principal); G93.41 Metabolic encephalopathy; E11.9 Type 2 diabetes mellitus without complications; K21.9 Gastro-esophageal reflux disease without esophagitis; J44.9 Chronic obstructive pulmonary disease, unspecified; I10 Essential (primary) hypertension; F31.9 Bipolar disorder, unspecified; F20.9 Schizophrenia, unspecified; F17.210 Nicotine dependence, cigarettes, uncomplicated; F14.10 Cocaine abuse, uncomplicated; F10.10 Alcohol abuse, uncomplicated; Z88.0 Allergy status to penicillin; Z88.2 Allergy status to sulfonamides; Z90.49 Acquired absence of other specified parts of digestive tract
CPT/HCPCS: 36415; 36416; 70450; 71045; 72125; 80048; 80053; 80306; 80307; 81003; 82553; 82805; 84443; 84484; 84703; 85025; 93005; 94002; 94003; G8978-GP-CJ; G8979-GP-CJ; G8980-GP-CJ; J1650; J2060; J2704; J3010; J3411; J7042; J7050; J7620; S0028

== ENCOUNTER 2018-11-02 11:25 | Emergency (ER) | payer MEDICARE, MEDICAID ==
[2018-11-02] MEDS ORDERED: Lorazepam 2 MG/ML VIAL ONE ×2 (11:51→12:11)
[2018-11-02] MEDS ORDERED: Mag-Al 1200 mg/1200 mg/30 ML UDCUP ONE (11:51)
[2018-11-02] MEDS ORDERED: Pantoprazole 40 MG VIAL ONE (11:51)
[2018-11-02] MEDS ORDERED: Lidocaine Viscous Sol 2% 15 ml UD Cup ONE (11:51)
[2018-11-02 12:12] LABS: #Basophils 0.1 thou/uL (0.0-0.2); #Eosinphils 0.1 thou/uL (0.0-0.7); #Lymphocytes 2.4 thou/uL (1.20-3.40); #Monocytes 0.8 thou/uL (0.11-0.59); #Neutrophils 7.8 thou/uL (1.40-6.50); %Basophils 0.6 % (0.0-1.0); %Eosinophils 0.8 % (0.0-10.0); %Lymphocytes 21.7 % (21.0-51.0); %Monocytes 7.3 % (0.0-10.0); %Neutrophils 69.6 % (42.0-75.0); Hemoglobin 14.2 g/dL (12.0-16.0); Mean Corpuscular HGB CONC 32.1 g/dL (32.0-36.0); Mean Corpuscular Hemoglobin 28.3 pg (27.0-31.0); Mean Corpuscular Volume 88.4 fL (78.0-98.0); Mean Platelet Volume 7.8 fL (7.4-10.4); Platelet Count 367 thou/uL (130-400); RBC Distribution Width 12.7 % (11.5-14.5); Red Blood Cell (RBC) Count 5.02 mill/uL (4.20-5.40); White Blood Cell (WBC) Count 11.3 thou/uL (4.8-10.8)
[2018-11-02 12:30] LABS: ALT (SGPT) 12 U/L (8-55); AST (SGOT) 18 U/L (5-34); Acetaminophen Less than 6.0 mcg/mL (10.0-30.0); Albumin 4.1 g/dL (3.5-5.0); Alcohol Less than 10 mg/dL (Less than 10); Alkaline Phosphatase 80 U/L (40-150); Anion Gap 13 mmol/L (10-20); BUN (Urea Nitrogen) 14 mg/dL (9.8-20.1); Bilirubin, Total 0.8 mg/dL (0.2-1.2); CK (CPK) 151 U/L (29-168); Calc. Creatinine Clearance 0 mL/min (70-130); Calcium 9.7 mg/dL (7.8-10.44); Carbon Dioxide 26 mmol/L (22-29); Chloride 104 mmol/L (98-107); Estimated GFR-MDRD 75; Globulin 3.3 g/dL (2.4-3.5); Glucose 98 mg/dL (70-105); Lipase 28 U/L (8-78); Potassium 3.9 mmol/L (3.5-5.1); Protein, Total 7.4 g/dL (6.0-8.3); Salicylate Less than 8.0 mg/dL (15.0-30.0); Sodium 139 mmol/L (136-145)
== END 2018-11-02 12:35 | disposition home or self-care (01) ==
LOC: ERS 11:25
DX: R45.1 Restlessness and agitation (principal)
CPT/HCPCS: 80053; 80307; 82550; 83690; 84443; 85025; 93005; 96372; C9113; J2060

== ENCOUNTER 2019-01-07 22:01 | Emergency (ER) | payer MEDICARE, MEDICAID ==
[2019-01-07 22:55] LABS: #Basophils 0.1 thou/uL (0.0-0.2); #Eosinphils 0.2 thou/uL (0.0-0.7); #Lymphocytes 3.1 thou/uL (1.20-3.40); #Monocytes 0.8 thou/uL (0.11-0.59); #Neutrophils 5.3 thou/uL (1.40-6.50); %Basophils 0.6 % (0.0-1.0); %Eosinophils 2.2 % (0.0-10.0); %Lymphocytes 33.2 % (21.0-51.0); %Monocytes 7.9 % (0.0-10.0); %Neutrophils 56.1 % (42.0-75.0); Hemoglobin 14.8 g/dL (12.0-16.0); Mean Corpuscular HGB CONC 33.8 g/dL (32.0-36.0); Mean Corpuscular Hemoglobin 30.6 pg (27.0-31.0); Mean Corpuscular Volume 90.6 fL (78.0-98.0); Mean Platelet Volume 7.5 fL (7.4-10.4); Platelet Count 270 thou/uL (130-400); RBC Distribution Width 12.2 % (11.5-14.5); Red Blood Cell (RBC) Count 4.83 mill/uL (4.20-5.40); White Blood Cell (WBC) Count 9.4 thou/uL (4.8-10.8)
[2019-01-07 23:18] LABS: ALT (SGPT) 12 U/L (8-55); AST (SGOT) 20 U/L (5-34); Alkaline Phosphatase 74 U/L (40-150); Anion Gap 13 mmol/L (10-20); BUN (Urea Nitrogen) 13 mg/dL (9.8-20.1); Bilirubin, Total 0.4 mg/dL (0.2-1.2); Calc. Creatinine Clearance 0 mL/min (70-130); Calcium 9.6 mg/dL (7.8-10.44); Carbon Dioxide 26 mmol/L (22-29); Chloride 100 mmol/L (98-107); Estimated GFR-MDRD 84; Globulin 3.1 g/dL (2.4-3.5); Glucose 89 mg/dL (70-105); Protein, Total 7.1 g/dL (6.0-8.3); Sodium 135 mmol/L (136-145)
[2019-01-07 23:24] LABS: Carbamazepine-Tegretol 5.7 ug/mL (4.0-12.0)
== END 2019-01-08 00:20 | disposition home or self-care (01) ==
LOC: ERS 22:01
DX: G40.409 Other generalized epilepsy and epileptic syndromes, not intractable, without status epilepticus (principal); E11.9 Type 2 diabetes mellitus without complications; Z79.899 Other long term (current) drug therapy
CPT/HCPCS: 36415; 36416; 80053; 80156; 85025; 93005

== ENCOUNTER 2020-07-22 12:30 | Emergency (ER) | payer MEDICAID, MEDICARE ==
[2020-07-22] MEDS ORDERED: Bacitracin 1 PK ONE ×2 (12:58→12:59)
== END 2020-07-22 13:00 | disposition home or self-care (01) ==
LOC: ERS 12:30
DX: R30.0 Dysuria (principal); E11.9 Type 2 diabetes mellitus without complications; K21.9 Gastro-esophageal reflux disease without esophagitis
CPT/HCPCS: 99281

== ENCOUNTER 2020-07-24 10:13 | Emergency (ER) | payer MEDICAID, OTHER | END 2020-07-24 11:23 | disposition home or self-care (01) | LOC: ERS 10:13 | DX: Z59.0 Homelessness (principal); E11.9 Type 2 diabetes mellitus without complications; K21.9 Gastro-esophageal reflux disease without esophagitis; F31.9 Bipolar disorder, unspecified | CPT/HCPCS: 99281 ==

== ENCOUNTER 2020-07-30 13:11 | Emergency (ER) | payer MEDICARE, MEDICAID ==
[2020-07-30 14:29] LABS: #Eosinphils 0.1 thou/uL (0.0-0.7); #Lymphocytes 2.3 thou/uL (1.20-3.40); #Monocytes 0.8 thou/uL (0.11-0.59); #Neutrophils 6.9 thou/uL (1.40-6.50); %Basophils 0.4 % (0.0-1.0); %Eosinophils 0.6 % (0.0-10.0); %Lymphocytes 22.5 % (21.0-51.0); %Monocytes 7.8 % (0.0-10.0); %Neutrophils 68.7 % (42.0-75.0); Hemoglobin 15.1 g/dL (12.0-16.0); Mean Corpuscular HGB CONC 33.1 g/dL (32.0-36.0); Mean Corpuscular Hemoglobin 30.7 pg (27.0-31.0); Mean Corpuscular Volume 92.6 fL (78.0-98.0); Mean Platelet Volume 7.4 fL (7.4-10.4); Platelet Count 333 thou/uL (130-400); RBC Distribution Width 11.8 % (11.5-14.5); Red Blood Cell (RBC) Count 4.91 mill/uL (4.20-5.40)
--- NOTE | 2020-07-30 14:30 | CT ---
CT BRAIN WITHOUT CONTRAST: HISTORY: Altered mental status FINDINGS: No evidence of acute infarct, hemorrhage, midline shift or abnormal extra-axial fluid collections is seen. The ventricular size is appropriate and the basilar cisterns are patent. The bony calvarium is intact. The visualized paranasal sinuses and mastoid air cells are well aerated. IMPRESSION: No CT evidence of acute intracranial process.
[2020-07-30 14:48] LABS: ALT (SGPT) Less than 7 U/L (8-55); AST (SGOT) 10 U/L (5-34); Acetaminophen Less than 6.0 mcg/mL (10.0-30.0); Albumin 4.2 g/dL (3.5-5.0); Alcohol Less than 10 mg/dL (Less than 10); Alkaline Phosphatase 84 U/L (40-110); Anion Gap 10 mmol/L (10-20); BUN (Urea Nitrogen) 11 mg/dL (9.8-20.1); Bilirubin, Total 0.3 mg/dL (0.2-1.2); CK (CPK) 90 U/L (29-168); Calc. Creatinine Clearance 0 mL/min (70-130); Calcium 9.3 mg/dL (7.8-10.44); Carbon Dioxide 31 mmol/L (22-29); Chloride 104 mmol/L (98-107); Estimated GFR-MDRD Greater than 90; Glucose 81 mg/dL (70-105); Potassium 3.7 mmol/L (3.5-5.1); Protein, Total 7.2 g/dL (6.0-8.3); Salicylate Less than 8.0 mg/dL (15.0-30.0); Sodium 141 mmol/L (136-145)
[2020-07-30 15:41] LABS: Bilirubin Negative (Negative); Blood, Urine Negative (Negative); Clarity Clear (Clear); Glucose, Urine (Dipstick) Normal (Negative); Ketone, Urine Negative (Negative); Leukocyte Negative Leu/uL (Negative); Nitrite Negative (Negative); Protein, Urine (Dipstick) Negative (Neg-Trace); Urobilinogen Normal mg/dL (Less than 2)
[2020-07-30 15:44] LABS: Pregnancy Test - Urine (BHCG) Negative (Negative); Pregu Control Background? CLEAR/WHITE (CLR/WHITE); Pregu Control Bar Appear? YES (CONTROL BAR)
[2020-07-30 15:51] LABS: Amphetamine Not Detected (NotDetected); Barbiturates Screen Not Detected (NotDetected); Benzodiazepine Screen Not Detected (NotDetected); Cocaine Metabolite Screen Not Detected (NotDetected); Medtox Control Line Valid? VALID (VALID); Medtox Reader # READER 4; Methadone Not Detected (NotDetected); Methamphetamine Not Detected (NotDetected); Opiate Screen Not Detected (NotDetected); Oxycodone Screen Not Detected (NotDetected); Phencyclidine (PCP) Not Detected (NotDetected); THC/Cannabinoid Screen Not Detected (NotDetected); Tricyclic Screen Not Detected (NotDetected)
[2020-07-31] MEDS ORDERED: Bacitracin 1 PK ONE (03:57)
[2020-07-31 06:48] LABS: Bilirubin Negative (Negative); Blood, Urine Negative (Negative); Clarity Clear (Clear); Glucose, Urine (Dipstick) Normal (Negative); Ketone, Urine Negative (Negative); Leukocyte Negative Leu/uL (Negative); Nitrite Negative (Negative); Protein, Urine (Dipstick) Negative (Neg-Trace); Urobilinogen Normal mg/dL (Less than 2)
[2020-07-31 07:05] LABS: Amphetamine Not Detected (NotDetected); Barbiturates Screen Not Detected (NotDetected); Benzodiazepine Screen Not Detected (NotDetected); Cocaine Metabolite Screen Not Detected (NotDetected); Medtox Control Line Valid? VALID (VALID); Medtox Reader # READER 4; Methadone Not Detected (NotDetected); Methamphetamine Not Detected (NotDetected); Opiate Screen Not Detected (NotDetected); Oxycodone Screen Not Detected (NotDetected); Phencyclidine (PCP) Not Detected (NotDetected); THC/Cannabinoid Screen Not Detected (NotDetected); Tricyclic Screen Not Detected (NotDetected)
--- NOTE | 2020-08-02 14:07 | EKG ---
Test Reason : Blood Pressure : / mmHG Vent. Rate : 067 BPM Atrial Rate : 067 BPM P-R Int : 126 ms QRS Dur : 086 ms QT Int : 398 ms P-R-T Axes : 055 015 037 degrees QTc Int : 420 ms Normal sinus rhythm Possible Left atrial enlargement Borderline ECG Confirmed by AMADOU EARLY ([id number]), editor continuity and script KATIE GODFREY ([id number]) on 08/02/2020 2:07:51 PM Referred By: Confirmed By:AMADOU Rowell
== END 2020-07-31 12:21 ==
LOC: ERS 13:11
DX: F31.9 Bipolar disorder, unspecified (principal); E11.9 Type 2 diabetes mellitus without complications; K21.9 Gastro-esophageal reflux disease without esophagitis; Z79.899 Other long term (current) drug therapy
CPT/HCPCS: 36415; 70450; 80053; 80306; 80307; 81003; 81025; 82550; 84443; 85025; 93005

== ENCOUNTER 2020-11-14 14:49 | Emergency (ER) | payer MEDICARE, MEDICAID ==
[~2020-11-14 14:49] MED LIST: Iopamidol-370 76% 500 ML 1 ML ONE
[2020-11-14 16:27] LABS: #Eosinphils 0.1 thou/uL (0.0-0.7); #Lymphocytes 2.6 thou/uL (1.20-3.40); #Monocytes 0.7 thou/uL (0.11-0.59); #Neutrophils 6.7 thou/uL (1.40-6.50); %Basophils 0.1 % (0.0-1.0); %Eosinophils 0.7 % (0.0-10.0); %Lymphocytes 25.8 % (21.0-51.0); %Monocytes 6.9 % (0.0-10.0); %Neutrophils 66.5 % (42.0-75.0); Hemoglobin 14.2 g/dL (12.0-16.0); Mean Corpuscular HGB CONC 34.5 g/dL (32.0-36.0); Mean Corpuscular Hemoglobin 31.9 pg (27.0-31.0); Mean Corpuscular Volume 92.2 fL (78.0-98.0); Mean Platelet Volume 7.6 fL (7.4-10.4); Platelet Count 262 thou/uL (130-400); RBC Distribution Width 11.6 % (11.5-14.5); Red Blood Cell (RBC) Count 4.46 mill/uL (4.20-5.40); White Blood Cell (WBC) Count 10.1 thou/uL (4.8-10.8)
[2020-11-14 16:57] LABS: ALT (SGPT) 9 U/L (8-55); AST (SGOT) 9 U/L (5-34); Acetaminophen Less than 6.0 mcg/mL (10.0-30.0); Albumin 3.8 g/dL (3.5-5.0); Alcohol Less than 10 mg/dL (Less than 10); Alkaline Phosphatase 75 U/L (40-110); Anion Gap 11 mmol/L (10-20); BUN (Urea Nitrogen) 6 mg/dL (9.8-20.1); Bilirubin, Total 0.3 mg/dL (0.2-1.2); Calc. Creatinine Clearance 0 mL/min (70-130); Calcium 8.7 mg/dL (7.8-10.44); Carbon Dioxide 28 mmol/L (22-29); Chloride 106 mmol/L (98-107); Globulin 2.7 g/dL (2.4-3.5); Glucose 99 mg/dL (70-105); Lipase 41 U/L (8-78); Potassium 3.3 mmol/L (3.5-5.1); Protein, Total 6.5 g/dL (6.0-8.3); Salicylate Less than 8.0 mg/dL (15.0-30.0); Sodium 142 mmol/L (136-145)
[2020-11-14 17:20] LABS: Bacteria/HPF None Seen HPF (None Seen); Bilirubin Negative (Negative); Blood, Urine Negative (Negative); Clarity Clear (Clear); Glucose, Urine (Dipstick) Normal (Negative); Ketone, Urine Negative (Negative); Leukocyte 75 Leu/uL (Negative); Nitrite Negative (Negative); Protein, Urine (Dipstick) Negative (Neg-Trace); RBC/HPF 0-3 HPF (0-3); Specific Gravity, Urine 1.014 (1.002-1.036); Squamous Epithelial 0-3 HPF (0-3); Urobilinogen Normal mg/dL (Less than 2); WBC/HPF 0-3 HPF (0-3); pH, Urine 6.5 (5.0-9.0)
[2020-11-14 17:28] LABS: Amphetamine Not Detected (NotDetected); Barbiturates Screen Not Detected (NotDetected); Benzodiazepine Screen Not Detected (NotDetected); Cocaine Metabolite Screen Not Detected (NotDetected); Medtox Control Line Valid? VALID (VALID); Medtox Reader # READER 1; Methadone Not Detected (NotDetected); Methamphetamine Not Detected (NotDetected); Opiate Screen Not Detected (NotDetected); Oxycodone Screen Not Detected (NotDetected); Phencyclidine (PCP) Not Detected (NotDetected); THC/Cannabinoid Screen Not Detected (NotDetected); Tricyclic Screen Not Detected (NotDetected)
== END 2020-11-15 01:35 | disposition home or self-care (01) ==
LOC: ERS 14:49
DX: R10.9 Unspecified abdominal pain (principal); E11.9 Type 2 diabetes mellitus without complications; K21.9 Gastro-esophageal reflux disease without esophagitis; Z79.899 Other long term (current) drug therapy
CPT/HCPCS: 70450; 74177; 80053; 80306; 80307; 81003; 81015; 83690; 84443; 84484; 85025; 93005; Q9967

== ENCOUNTER 2022-03-19 07:37 | Emergency (ER) | payer MEDICARE, MEDICAID ==
[2022-03-19 08:09] LABS: #Basophils 0.1 thou/uL (0.0-0.2); #Eosinphils 0.1 thou/uL (0.0-0.7); #Lymphocytes 2.2 thou/uL (1.20-3.40); #Monocytes 0.6 thou/uL (0.11-0.59); %Basophils 0.8 % (0.0-1.0); %Eosinophils 1.8 % (0.0-10.0); %Lymphocytes 27.6 % (21.0-51.0); %Monocytes 7.7 % (0.0-10.0); %Neutrophils 62.1 % (42.0-75.0); Hemoglobin 15.9 g/dL (12.0-16.0); Mean Corpuscular HGB CONC 33.9 g/dL (32.0-36.0); Mean Corpuscular Hemoglobin 31.4 pg (27.0-31.0); Mean Corpuscular Volume 92.8 fL (78.0-98.0); Mean Platelet Volume 7.3 fL (7.4-10.4); Platelet Count 254 thou/uL (130-400); RBC Distribution Width 11.9 % (11.5-14.5); Red Blood Cell (RBC) Count 5.04 mill/uL (4.20-5.40)
[2022-03-19 08:31] LABS: Anion Gap 13 mmol/L (10-20); BUN (Urea Nitrogen) 8 mg/dL (9.8-20.1); Calc. Creatinine Clearance 0 mL/min (70-130); Carbon Dioxide 23 mmol/L (22-29); Chloride 106 mmol/L (98-107); Potassium 3.7 mmol/L (3.5-5.1); Sodium 138 mmol/L (136-145)
[2022-03-19 08:32] LABS: ALT (SGPT) 8 U/L (8-55); AST (SGOT) 11 U/L (5-34); Albumin 4.3 g/dL (3.5-5.0); Alkaline Phosphatase 65 U/L (40-110); Bilirubin, Total 0.9 mg/dL (0.2-1.2); Calcium 9.4 mg/dL (7.8-10.44); Globulin 2.9 g/dL (2.4-3.5); Glucose 98 mg/dL (70-105); Protein, Total 7.2 g/dL (6.0-8.3)
== END 2022-03-19 09:00 | disposition home or self-care (01) ==
LOC: ERS 07:37
DX: R07.89 Other chest pain (principal); E11.9 Type 2 diabetes mellitus without complications; K21.9 Gastro-esophageal reflux disease without esophagitis; F17.210 Nicotine dependence, cigarettes, uncomplicated; Z79.899 Other long term (current) drug therapy
CPT/HCPCS: 36415; 71045; 80053; 83880; 84484; 85025; 93005

== ENCOUNTER 2022-08-05 20:50 | Emergency (ER) | payer MEDICARE, MEDICAID ==
[2022-08-05 22:17] LABS: #Eosinphils 0.2 thou/uL (0.0-0.7); #Monocytes 0.8 thou/uL (0.11-0.59); #Neutrophils 4.5 thou/uL (1.40-6.50); %Basophils 0.2 % (0.0-1.0); %Eosinophils 2.8 % (0.0-10.0); %Lymphocytes 26.8 % (21.0-51.0); %Monocytes 10.4 % (0.0-10.0); %Neutrophils 59.7 % (42.0-75.0); Hemoglobin 12.4 g/dL (12.0-16.0); Mean Corpuscular HGB CONC 33.4 g/dL (32.0-36.0); Mean Corpuscular Volume 92.8 fL (78.0-98.0); Mean Platelet Volume 7.5 fL (7.4-10.4); Platelet Count 277 thou/uL (130-400); White Blood Cell (WBC) Count 7.5 thou/uL (4.8-10.8)
[2022-08-05 22:31] LABS: ALT (SGPT) 10 U/L (8-55); AST (SGOT) 16 U/L (5-34); Albumin 3.7 g/dL (3.5-5.0); Alkaline Phosphatase 76 U/L (40-110); Anion Gap 8 mmol/L (10-20); BUN (Urea Nitrogen) 21 mg/dL (9.8-20.1); Calc. Creatinine Clearance 0 mL/min (70-130); Calcium 9.4 mg/dL (7.8-10.44); Carbon Dioxide 27 mmol/L (22-29); Chloride 105 mmol/L (98-107); Estimated GFR 84; Globulin 2.5 g/dL (2.4-3.5); Glucose 107 mg/dL (70-105); Potassium 4.2 mmol/L (3.5-5.1); Protein, Total 6.2 g/dL (6.0-8.3); Sodium 136 mmol/L (136-145)
[2022-08-05 22:35] LABS: Bilirubin, Total 0.2 mg/dL (0.2-1.2)
[2022-08-06 00:59] LABS: Troponin I Less than 0.010 ng/mL (< 0.028)
== END 2022-08-06 01:48 | disposition home or self-care (01) ==
LOC: ERS 20:50
DX: Z00.00 Encounter for general adult medical examination without abnormal findings (principal); R07.89 Other chest pain; E11.9 Type 2 diabetes mellitus without complications; K21.9 Gastro-esophageal reflux disease without esophagitis; F17.210 Nicotine dependence, cigarettes, uncomplicated
CPT/HCPCS: 36415; 71045; 80053; 83880; 84484; 85025; 93005

== ENCOUNTER 2022-10-21 08:57 | Emergency (ER) | payer MEDICARE, OTHER ==
[2022-10-21] MEDS ORDERED: Ondansetron ODT 4 MG TAB ONE (09:21)
[2022-10-21 09:50] LABS: #Lymphocytes 1.1 thou/uL (1.20-3.40); #Monocytes 1.4 thou/uL (0.11-0.59); #Neutrophils 13.2 thou/uL (1.40-6.50); %Lymphocytes 6.8 % (21.0-51.0); %Monocytes 8.7 % (0.0-10.0); %Neutrophils 84.5 % (42.0-75.0); Hemoglobin 12.8 g/dL (12.0-16.0); Mean Corpuscular HGB CONC 34.1 g/dL (32.0-36.0); Mean Corpuscular Hemoglobin 31.2 pg (27.0-31.0); Mean Corpuscular Volume 91.3 fl (78.0-98.0); Mean Platelet Volume 7.5 fL (7.4-10.4); Platelet Count 310 10x3/uL (130-400); RBC Distribution Width 12.3 % (11.5-14.5); White Blood Cell (WBC) Count 15.6 10x3/uL (4.8-10.8)
[2022-10-21 10:04] LABS: ALT (SGPT) 9 U/L (8-55); AST (SGOT) 17 U/L (5-34); Albumin 4.7 g/dL (3.5-5.0); Alkaline Phosphatase 79 U/L (40-110); Anion Gap 15 mmol/L (10-20); BUN (Urea Nitrogen) 18 mg/dL (9.8-20.1); Bilirubin, Total 0.7 mg/dL (0.2-1.2); Calc. Creatinine Clearance 0 mL/min (70-130); Calcium 9.8 mg/dL (7.8-10.44); Carbon Dioxide 25 mmol/L (22-29); Chloride 100 mmol/L (98-107); Estimated GFR 97; Globulin 2.9 g/dL (2.4-3.5); Glucose 118 mg/dL (70-105); Lipase 9 U/L (8-78); Protein, Total 7.6 g/dL (6.0-8.3); Sodium 136 mmol/L (136-145)
[2022-10-21 11:08] LABS: Bacteria/HPF None Seen HPF (None Seen); Bilirubin Negative (Negative); Blood, Urine Negative (Negative); Clarity Clear (Clear); Glucose, Urine (Dipstick) Normal (Negative); Ketone, Urine Negative (Negative); Leukocyte 75 Leu/uL (Negative); Nitrite Negative (Negative); Protein, Urine (Dipstick) 30 mg/dL (Neg-Trace); RBC/HPF 0-3 HPF (0-3); Specific Gravity, Urine 1.029 (1.002-1.036); Squamous Epithelial 0-3 HPF (0-3); Urobilinogen Normal mg/dL (Less than 2); WBC/HPF 0-3 HPF (0-3); pH, Urine 6.5 (5.0-9.0)
== END 2022-10-21 12:21 | disposition home or self-care (01) ==
LOC: ERS 08:57
DX: R11.2 Nausea with vomiting, unspecified (principal); E11.9 Type 2 diabetes mellitus without complications; K21.9 Gastro-esophageal reflux disease without esophagitis; Z87.891 Personal history of nicotine dependence
CPT/HCPCS: 36415; 36416; 71045; 80053; 81003; 81015; 83690; 85025; 94760; Q0162

== ENCOUNTER 2022-11-17 10:57 | Emergency (ER) | payer MEDICARE, OTHER ==
[2022-11-17 12:40] LABS: Hemoglobin 15.8 g/dL (12.0-16.0); Mean Corpuscular HGB CONC 32.8 g/dL (32.0-36.0); Mean Corpuscular Hemoglobin 30.4 pg (27.0-31.0); Mean Corpuscular Volume 92.7 fl (78.0-98.0); Mean Platelet Volume 7.4 fL (7.4-10.4); Platelet Count 390 10x3/uL (130-400); RBC Distribution Width 13.1 % (11.5-14.5); Red Blood Cell (RBC) Count 5.19 mill/uL (4.20-5.40); White Blood Cell (WBC) Count 20.8 10x3/uL (4.8-10.8)
[2022-11-17 12:56] LABS: ALT (SGPT) 8 U/L (8-55); AST (SGOT) 14 U/L (5-34); Albumin 4.4 g/dL (3.5-5.0); Alkaline Phosphatase 79 U/L (40-110); Anion Gap 17 mmol/L (10-20); BUN (Urea Nitrogen) 19 mg/dL (9.8-20.1); Bilirubin, Total 0.7 mg/dL (0.2-1.2); Calc. Creatinine Clearance 0 mL/min (70-130); Calcium 10.2 mg/dL (7.8-10.44); Carbon Dioxide 27 mmol/L (22-29); Chloride 96 mmol/L (98-107); Estimated GFR 99; Globulin 3.8 g/dL (2.4-3.5); Glucose 109 mg/dL (70-105); Potassium 3.8 mmol/L (3.5-5.1); Protein, Total 8.2 g/dL (6.0-8.3); Sodium 136 mmol/L (136-145)
[2022-11-17 12:57] LABS: Acetaminophen Less than 10.0 mcg/mL (10.0-30.0); Alcohol Less than 10 mg/dL (Less than 10); Salicylate Less than 8.0 mg/dL (15.0-30.0)
[2022-11-17 13:01] LABS: Lymphocytes 7 % (21-51); MDiff Complete? YES; Monocytes 4 % (0-10); Neutrophil 89 % (42-75); Platelet Morphology Comment Appears Adequate; Polychromasia SLIGHT = 2-3 cells (100X) (0-2/hpf)
[2022-11-17 14:46] LABS: Amphetamine Not Detected (NotDetected); Barbiturates Screen Not Detected (NotDetected); Benzodiazepine Screen Not Detected (NotDetected); Cocaine Metabolite Screen Detected (NotDetected); Methadone Not Detected (NotDetected); Methamphetamine Not Detected (NotDetected); Opiate Screen Not Detected (NotDetected); Oxycodone Screen Not Detected (NotDetected); Phencyclidine (PCP) Not Detected (NotDetected); THC/Cannabinoid Screen Not Detected (NotDetected); Tricyclic Screen Not Detected (NotDetected)
[2022-11-17 14:48] LABS: Bacteria/HPF None Seen HPF (None Seen); Bilirubin Negative (Negative); Blood, Urine Negative (Negative); Clarity Clear (Clear); Glucose, Urine (Dipstick) Normal (Negative); Ketone, Urine 20 mg/dL (Negative); Leukocyte 250 Leu/uL (Negative); Nitrite Negative (Negative); Protein, Urine (Dipstick) 50 mg/dL (Neg-Trace); RBC/HPF 0-3 HPF (0-3); Squamous Epithelial 0-3 HPF (0-3); Urobilinogen Normal mg/dL (Less than 2); WBC/HPF 21-50 HPF (0-3)
[2022-11-17 14:52] LABS: Specific Gravity, Urine 1.059 (1.002-1.036)
== END 2022-11-17 15:32 | disposition home or self-care (01) ==
LOC: ERS 10:57
DX: R11.2 Nausea with vomiting, unspecified (principal); N39.0 Urinary tract infection, site not specified; D72.829 Elevated white blood cell count, unspecified; E11.9 Type 2 diabetes mellitus without complications; K21.9 Gastro-esophageal reflux disease without esophagitis; F17.210 Nicotine dependence, cigarettes, uncomplicated
CPT/HCPCS: 36415; 74177; 80053; 80306; 80307; 81003; 81015; 85025; 87086